=== PATIENT | female | born 1950 | race Asian ===

== ENCOUNTER → 2018-02-06 | Outpatient (CLI) | payer MEDICARE ==
[~2018-02-06] MED LIST: Aspir 8181 MG; CENTRUM SILVER1 EAC3
[2018-02-07 08:31] LABS: Source Cervix
[2018-02-08 12:26] LABS: HPV Genotype 16 Not Detected (NOTDET); HPV Genotype 18 Not Detected (NOTDET)
[2018-02-13 08:38] LABS: HPV High Risk Other Not Detected (NOTDET)
== END | disposition home or self-care (01) ==
LOC: LAB SHORT 14:26 → OLS 14:26
PROVIDERS: Nurse Practitioner Women's Health
DX: Z12.4 Encounter for screening for malignant neoplasm of cervix (principal)
CPT/HCPCS: 87624; G0123

== ENCOUNTER 2023-09-06 08:18 | Day surgery (SDC) | payer MEDICARE ==
[~2023-09-06] VITALS: Ht 154.9 cm; Wt 40.8 kg
[~2023-09-06 08:18] MED LIST changes: +ATOR20 PO; +OMEPRAZOLE MAGN20 MG PO
[2023-09-06] MEDS ORDERED: K-Dur10 MEQ (09:13)
--- NOTE | 2023-09-06 09:18 | NUR ---
09/06/23 0918 Shalonda Talbot CALL LIGHT WITHIN REACH. TETRACINE IN RIGHT EYE AT 0916 AND SÁNCHEZETT IN AT 0918
[2023-09-06 10:22] VITALS: BP 154/93
--- NOTE | 2023-09-06 10:26 | NUR ---
09/06/23 1026 CALLIE BORGES IV REMOVED. ZULAY WELL. CANNULA INTACT
== END 2023-09-06 10:35 | disposition home or self-care (01) ==
LOC: ORSCSDS 08:18
PROVIDERS: Student in an Organized Health Care Education/Training Program
PROC: 08RJ3JZ Replacement of Right Lens with Synthetic Substitute, Percutaneous Approach (ICD-10-PCS; principal; 2023-09-06 10:00)
DX: H25.11 Age-related nuclear cataract, right eye (principal); E78.5 Hyperlipidemia, unspecified
CPT/HCPCS: J2250; J3010; J7040; V2632

== ENCOUNTER 2023-11-22 08:33 | Day surgery (SDC) | payer MEDICARE ==
[~2023-11-22] VITALS: Ht 154.9 cm; Wt 41.0 kg
[~2023-11-22 08:33] MED LIST changes: +KLOR-CON 1010 ME9 PO
--- NOTE | 2023-11-22 09:08 | NUR ---
11/22/23 0908 Lisa Bo AT 0902 PLEDGET AT 0903
[2023-11-22 10:07] VITALS: BP 142/82
== END 2023-11-22 10:22 | disposition home or self-care (01) ==
LOC: ORSCSDS 08:33
PROVIDERS: Student in an Organized Health Care Education/Training Program
PROC: 08RK3JZ Replacement of Left Lens with Synthetic Substitute, Percutaneous Approach (ICD-10-PCS; principal; 2023-11-22 10:00)
DX: H25.12 Age-related nuclear cataract, left eye (principal); Z96.1 Presence of intraocular lens; I10 Essential (primary) hypertension; E78.5 Hyperlipidemia, unspecified; E03.9 Hypothyroidism, unspecified; Z79.899 Other long term (current) drug therapy
CPT/HCPCS: J2250; J3010; J7040; V2632